=== PATIENT | female | born 1980 | race Two or more races ===

== ENCOUNTER 2017-02-20 13:31 | Emergency (ER) | payer OTHER ==
[2017-02-20 13:40] VITALS: BP 119/59; PULSE 73; TEMP 98.8; BMI 22.3
--- NOTE | 2017-02-20 14:03 | PDOC ---
History of Present Illness - General Chief Complaint: Vaginal Bleeding Stated Complaint: VAGINAL BLEEDING () Time Seen by Provider: 02/20/17 14:03 - History of Present Illness Initial Comments: 02/20/17 14:10 Ms. Tay is a 36 yo female with pmh of chronic rhinosinusitis who presents to the emergency room complaining of a 1 day history of vaginal bleeding. She reports that she is worried because she had taken a test last night after being 3 days late which was positive (desired ) but that she started her normal menstraul bleeding this morning. She reports a history of miscarriage after approximately 6 weeks around 10 years ago. She also reports a fever of 100.5 The patient denies chest pain, shortness of breath, headache and dizziness. Denies fever, chills, nausea, vomit, diarrhea and constipation. Denies dysuria, frequency, urgency and hematuria. Allergies: NKDA 02/20/17 16:20 Past History - Past Medical History Allergies/Adverse Reactions: Allergies Allergy/AdvReac Type Severity Reaction Status Date / Time No Known Allergies Allergy Verified 02/20/17 13:40 COPD: No Other medical history: denies - Suicide/Smoking/Psychosocial Hx Smoking History: Never smoked Information on smoking cessation initiated: No Hx Alcohol Use: No Drug/Substance Use Hx: No Substance Use Type: None Review of Systems - Review of Systems Comments:: 02/20/17 16:20 GENERAL/CONSTITUTIONAL: No fever or chills. No weakness. HEAD, EYES, EARS, NOSE AND THROAT: No change in vision. No ear pain or discharge. No sore throat. CARDIOVASCULAR: No chest pain or shortness of breath RESPIRATORY: No cough, wheezing, or hemoptysis. GASTROINTESTINAL: No nausea, vomiting, diarrhea or constipation. GENITOURINARY: +Bleeding consistent with normal period reported MUSCULOSKELETAL: No joint or muscle swelling or pain. No neck or back pain. SKIN: No rash NEUROLOGIC: No headache, vertigo, loss of consciousness, or change in strength/ sensation. ENDOCRINE: No increased thirst. No abnormal weight change HEMATOLOGIC/LYMPHATIC: No anemia, easy bleeding, or history of blood clots. ALLERGIC/IMMUNOLOGIC: No hives or skin allergy. *Physical Exam - Vital Signs Last Vital Signs Temp Pulse Resp BP Pulse Ox 98.8 F 73 18 119/59 99 02/20/17 13:37 02/20/17 13:37 02/20/17 13:37 02/20/17 13:37 02/20/17 13:37 - Physical Exam Comments: 02/20/17 16:21 GENERAL: Awake, alert, and fully oriented, in no acute distress HEAD: No signs of trauma, normocephalic, atraumatic EYES: PERRLA, EOMI, sclera anicteric, conjunctiva clear ENT: Auricles normal inspection, hearing grossly normal, nares patent, oropharynx clear without exudates. Moist mucosa NECK: Normal ROM, supple, no lymphadenopathy, JVD, or masses LUNGS: No distress, speaks full sentences, clear to auscultation bilaterally HEART: Regular rate and rhythm, normal S1 and S2, no murmurs, rubs or gallops, peripheral pulses normal and equal bilaterally. ABDOMEN: Soft, nontender, normoactive bowel sounds. No guarding, no rebound. No masses EXTREMITIES: Normal inspection, Normal range of motion, no edema. No clubbing or cyanosis. NEUROLOGICAL: Cranial nerves II through XII grossly intact. Normal speech, normal gait, no focal sensorimotor deficits SKIN: Warm, Dry, normal turgor, no rashes or lesions noted. : Scant blood noted in vaginal vault. OS closed, No CMT or pelvic tenderness. Medical Decision Making - Medical Decision Making 02/20/17 16:21 Ms. Tay had a negative urine HCG here but positive U-preg tests from home (4). Quantitative blood sent, confirmed early . Transvaginal US offered - patient declined. Discussed with patient need to return in 2 days to track Quantitative increase in HCG. Patient verbalized understanding and will comply. Patient will also follow-up outpatient with PCP and [facility]. *DC/Admit/Observation/Transfer Diagnosis at time of Disposition: Bleeding in early - Discharge Dispostion Disposition: HOME - Referrals - Patient Instructions Printed Discharge Instructions: DI for Vaginal Bleeding During Additional Instructions: Please return if any heavy bleeding, pain, fever, or other concerning symptoms. - Post Discharge Activity
--- NOTE | 2017-02-20 14:08 | PDOC ---
Attending Attestation - Resident Resident Name: Mendoza Garcia - HPI HPI: 02/21/17 18:32 Pt presents to the ED complaining of vaginal bleeding. period was 5 days late, so patient had positive pregancy tests at home. Denies abdominal pain or other complaints. - Physicial Exam PE: 02/21/17 18:33 Agree with resident exam. Abdomen is non tender on my exam. - Medical Decision Making 02/21/17 18:33 Pt presents to thE ED complaining of vaginal bleeding. Patient is but with bhcg of only 125. No abdominal pain or tenderness. Patient was offered US , which she refused. Patient understands that there is a small risk that she may have ectopic and that she must return immediately to the ED for new or worsening symptoms.
== END 2017-02-20 16:30 | disposition home or self-care (01) ==
LOC: JER 13:31
DX: O26.891 Other specified pregnancy related conditions, first trimester (principal); J06.9 Acute upper respiratory infection, unspecified; Z3A.01 Less than 8 weeks gestation of pregnancy
CPT/HCPCS: 36415; 84702; 84703; 86850; 86900; 86901; 99282-25

== ENCOUNTER 2017-02-22 15:12 | Emergency (ER) | payer OTHER ==
[2017-02-22 15:17] VITALS: BP 128/73; PULSE 95; TEMP 100.4; BMI 22.3
--- NOTE | 2017-02-22 15:35 | PDOC ---
History of Present Illness - General Chief Complaint: [facility] [place] Stated Complaint: REVISIT/ LAB VARIANCE Time Seen by Provider: 02/22/17 15:24 History Source: Patient Exam Limitations: No Limitations - History of Present Illness Initial Comments: 02/22/17 15:53 Chief complaint: Repeat hCG Patient 36-year-old female who was here 2 days ago for having a positive test and then having vaginal bleeding. No pain. Patient had a blood test that showed that she was with a Quant of 125. Patient did not have an ultrasound. Patient returns for repeat Quant, no pain and no bleeding. Patient had a fever of 100.5 on the previous visit and 100.4 today but feels well and has upper respiratory symptoms. She does states she has urinary frequency but no pain. GENERAL/CONSTITUTIONAL: No fever, weakness. dizziness HEAD, EYES, EARS, NOSE AND THROAT: No change in vision. No ear pain or discharge. No sore throat. CARDIOVASCULAR: No chest pain RESPIRATORY: No shortness of breath or cough GASTROINTESTINAL: No pain, nausea, vomiting, diarrhea or constipation GENITOURINARY: No dysuria, + frequency MUSCULOSKELETAL: No neck or back pain SKIN: No rash NEUROLOGIC: No headache, vertigo, loss of consciousness, or loss of sensation. GENERAL: The patient is awake, alert, and fully oriented, in no acute distress. HEAD: Normal with no signs of trauma. EYES: Pupils equal, round and reactive to light, sclera anicteric, conjunctiva clear. ENT: pharynx: no erythema, no exudate, uvula midline NECK: supple CHEST: clear, nontender, rr ABD: soft, nontender EXTREMITIES: Normal range of motion, no edema. NEUROLOGICAL: Normal speech, normal gait. SKIN: Warm, Dry Past History - Past Medical History Allergies/Adverse Reactions: Allergies Allergy/AdvReac Type Severity Reaction Status Date / Time No Known Allergies Allergy Verified 02/22/17 15:17 Home Medications: Ambulatory Orders NK [No Known Home Medication] 02/22/17 COPD: No - Suicide/Smoking/Psychosocial Hx Smoking History: Never smoked Hx Alcohol Use: Yes (SOCIAL) Drug/Substance Use Hx: No Substance Use Type: None *Physical Exam - Vital Signs Last Vital Signs Temp Pulse Resp BP Pulse Ox 100.4 F H 95 H 20 128/73 100 02/22/17 15:14 02/22/17 15:14 02/22/17 15:14 02/22/17 15:14 02/22/17 15:14 Medical Decision Making - Medical Decision Making Early , did have bleeding and was seen in the ER 2 days ago with a Quant of 125. Patient has low-grade fever, upper respiratory symptoms. No indication for further workup. We'll do a UA given the patient is and she has no pain and still does not want an ultrasound given the early stated the . No bleeding and patient was A+ on previous visit Quant today is 365. UA is negative. Patient will follow-up with OB on Friday and let them know that this is not for a routine 8 week visit. She will start vitamins and if she still has a fever she will follow-up with her doctor on Friday regarding that. She will return if she has any kind of abdominal pain or bleeding. *DC/Admit/Observation/Transfer Diagnosis at time of Disposition: early - Discharge Dispostion Disposition: HOME Condition at time of disposition: Stable - Referrals Referrals: Alyson Lee MD [Staff Physician] - - Patient Instructions Printed Discharge Instructions: DI for -- Discomforts and Remedies Additional Instructions: you can take tylenol for your fever. follow up on Friday if still having fever take vitamins daily make an appt with an ob for this week return to er if pain or bleeding - Post Discharge Activity
[2017-02-22 16:11] LABS: PH,URINE 8.5 (5.0-8.0); URINE APPEARANCE CLEAR; URINE BILIRUBIN NEGATIVE (NEGATIVE); URINE BLOOD NEGATIVE (NEGATIVE); URINE COLOR LT. YELLOW; URINE GLUCOSE (UA) NEGATIVE (NEGATIVE); URINE KETONE NEGATIVE (NEGATIVE); URINE NITRITE NEGATIVE (NEGATIVE); URINE PROTEIN NEGATIVE (NEGATIVE); URINE UROBILINOGEN 0.2 mg/dL (0.2-1.0)
[2017-02-22 19:28] LABS: URINE LEUK ESTERASE Negative (NEGATIVE)
== END 2017-02-22 17:09 | disposition home or self-care (01) ==
LOC: JERFT 15:12
DX: O26.891 Other specified pregnancy related conditions, first trimester (principal); Z3A.01 Less than 8 weeks gestation of pregnancy
CPT/HCPCS: 36415; 81003; 84702; 99281-25

== ENCOUNTER 2017-11-11 05:50 | Inpatient (IN) | payer OTHER ==
[~2017-11-11 05:50] MED LIST: CITRIC ACID/SODIUM CITRATE 30 ML UNIT-DOSE CUP PO ONE; ELECTROLYTE-148 SOLN 500 ML IV ONE
[2017-11-11] MEDS ORDERED: ELECTROLYTE-148 SOLN 1,000 ML IV SCH (06:20)
[2017-11-11 06:44] VITALS: BMI 27.4
[2017-11-11 06:49] LABS: BASO % 0.9 % (0-2.0); EOS % 0.7 % (0-4.5); HEMATOCRIT 32.5 % (32.4-45.2); HEMOGLOBIN 11.1 GM/dL (10.7-15.3); LYMPH % 29.2 % (8-40); MCH 33.7 pg (25.7-33.7); MCHC 34.2 g/dl (32.0-36.0); MEAN CELL VOLUME 98.4 fl (80-96); MONO % 7.8 % (3.8-10.2); NEUT % 61.4 % (42.8-82.8); PLATELET COUNT 136 K/MM3 (134-434); RDW 13.8 % (11.6-15.6)
[2017-11-11 07:09] LABS: INR 0.98 (0.83-1.09); PROTHROMBIN TIME (PATIENT) 11.1 SEC (9.7-13.0)
[2017-11-11 07:11] LABS: ACTIVATED PTT 25.7 SECONDS (25.2-36.5)
[2017-11-11] MEDS ORDERED: ONDANSETRON 4 MG/2 ML VIAL IVPUSH PRN (07:33)
[2017-11-11 07:35] LABS: ANION GAP 7 (8-16); BLOOD UREA NITROGEN 10 mg/dL (7-18); CALCIUM 8.9 mg/dL (8.5-10.1); CHLORIDE 106 mmol/L (98-107); CO2 25 mmol/L (21-32); CREATININE 0.7 mg/dL (0.55-1.02); GLUCOSE,RANDOM 85 mg/dL (74-106); POTASSIUM 4.5 mmol/L (3.5-5.1); SODIUM 138 mmol/L (136-145)
[2017-11-11] MEDS ORDERED: morphine SULFATE/Preservative Free 0.5 MG/ML (1cc Syringe) ONE ×2 (08:23→09:38)
[2017-11-11] MEDS ORDERED: OXYTOCIN 20 UNITS in 0.9% NS 40 UNIT/2,000 ML INFUS.BAG IV ONE (09:02)
--- NOTE | 2017-11-11 09:30 | HP ---
Past Medical History - Primary Care Physician PCP:: Nelly Cruz - Admission Chief Complaint: 36yo P0 @ 41 weeks, s/p failed Postdates induction, declining another BETSY, for elective c/section, + FM, denies VB, LOF, Ctx. History of Present Illness: 1. GBS positive - for c/section, no need for prophylaxis 2. AMA - Nl Materni 21 XY History Source: Patient, Medical Record Limitations to Obtaining History: No Limitations - Past Medical History ...: 2 ...Para: 0 ...Term: 0 ...: 0 ...Spon : 1 ...Induced : 0 ...Multiple Gestation: 0 ...LMP: 01/24/17 ... Weeks Gestation by Dates: 41.4 ...EDC by Dates: 10/31/17 ...EDC by Sono: 11/04/17 Infectious Disease: Yes: Other (Chronic sinusitis) - Past Surgical History Past Surgical History: Yes: None Hx Myomectomy: No Hx Transabdominal Cerclage: No Additional Surgical History: Rhinoplasty - Smoking History Smoking history: Never smoked Have you smoked in the past 12 months: No - Alcohol/Substance Use Hx Alcohol Use: No History of Substance Use: reports: None - Social History ADL: Independent History of Recent Travel: No Home Medications - Allergies Allergies/Adverse Reactions: Allergies Allergy/AdvReac Type Severity Reaction Status Date / Time No Known Allergies Allergy Verified 11/05/17 19:50 - Home Medications Home Medications: Ambulatory Orders Vitamins (Sjr) - 1 tab PO DAILY 11/05/17 Ibuprofen [Motrin -] 600 mg PO QID #28 tablet 11/14/17 Physical Exam - Maternity Vital Signs: Vital Signs Temperature 98.4 F 11/11/17 07:33 Pulse Rate 86 11/11/17 08:33 Respiratory Rate 20 11/11/17 08:33 Blood Pressure 125/70 11/11/17 08:33 O2 Sat by Pulse Oximetry (%) - Labs Lab Results: CBC, BMP 11/11/17 06:05 11/11/17 06:05
[2017-11-11] MEDS ORDERED: ePHEDrine SULFATE 50 MG/1 ML AMPULE ONE (09:45)
[2017-11-11] MEDS ORDERED: SODIUM CHLORIDE 0.9% P/F 10 ML VIAL IJ ONE (09:46)
[2017-11-11] MEDS ORDERED: ceFAZolin SODIUM 1 GM VIAL ONE ×3 (09:46→23:56)
[2017-11-11] MEDS ORDERED: KETOROLAC TROMETHAMINE 30 MG/1 ML VIAL ONE (09:47)
[2017-11-11] MEDS ORDERED: BENZOCAINE 20% 57 GM BOTTLE TP PRN (11:19)
[2017-11-11] MEDS ORDERED: diphenhydrAMINE HCL 25 MG CAPSULE (FP) PO PRN (11:19)
[2017-11-11] MEDS ORDERED: WITCH HAZEL 50% (TUCKS) 40 PAD/JAR PAD TP PRN (11:19)
[2017-11-11] MEDS ORDERED: METHYLERGONOVINE MALEATE 0.2 MG/1 ML AMP IM PRN (11:19)
[2017-11-11] MEDS ORDERED: oxyCODONE HCL 5 MG TABLET PO PRN ×2 (11:19)
[2017-11-11] MEDS ORDERED: BENZOCAINE 28 GM HEMORRHOIDAL OINTMENT PR PRN (11:19)
--- NOTE | 2017-11-11 11:28 | OP ---
Operative Note - Note: Operative Date: 11/11/17 Pre-Operative Diagnosis: 36yo P0 @ 41 wks failed induction of labor, elective c/ section Operation: Primary c/section Post-Operative Diagnosis: Same as Pre-op (and meconium stained amniotic fluid) Surgeon: Nelly Cruz Name Plate Stamping Machine Operator: Oleg Guerrero Anesthesiologist/EQUIPMENT ASSOCIATE: Trung Anguiano Anesthesia: Spinal Specimens Removed: Viable Male infant. Full term placenta Estimated Blood Loss (mls): 500 Drains, Volume Out (mls): 200 Fluid Volume Replaced (mls): 2,300 Operative Report Dictated: Yes
[2017-11-11] MEDS ORDERED: OXYTOCIN 20 UNITS in 0.9% NS 1,000 ML IV SCH (11:30)
--- NOTE | 2017-11-11 11:33 | PN ---
Delivery - Delivery Section: Primary, Low Flap Transverse Type of Anesthesia: Spinal EBL (cc): 500 Delivery, Single - Stages of Labor Date of Delivery: 11/11/17 Time of Delivery: 10:07 Date Placenta Delivered: 11/11/17 Time Placenta Delivered: 10:09 Placenta: Yes: Expressed - Condition of Infant Adjunct Psychology Faculty Member/Professor Of Mechanical Engineering Present: Yes Infant Gender: Male Weight: 8 lb 3 oz Position: Right, OT - 1 Minute Total Score: 8 5 Minutes Total Score: 9 - Feeding Plan Initial Plan: Elected not to breastfeed exclusively throughout hospitalization Benefits of Exclusively reinforced: Yes Remarks - Remarks Remarks: Meconium stained fluid noted All tissue layers closed
[2017-11-11 11:44] LABS: ARTERIAL BLD GAS O2 SATURATION 43.7 % (90-98.9); ARTERIAL BLOOD GAS BASE EXCESS -7.1 meq/l (-2-2); ARTERIAL BLOOD GAS PCO2 50.1 mmHg (35-45); ARTERIAL BLOOD GAS pH 7.24 (7.35-7.45)
[2017-11-11 11:49] LABS: ARTERIAL BLOOD GAS PO2 25.5 mmHg (80-100)
[2017-11-11 11:50] LABS: VENOUS PH 7.2 (7.32-7.42)
[2017-11-11 11:51] LABS: VENOUS PO2 27.2 mmHg (28-48)
[2017-11-11] MEDS: OXYTOCIN 20 UNITS in 0.9% NS 20 UNIT/1,000 ML INFUS.BAG IV SCH (13:19)
[2017-11-11] MEDS ORDERED: TRIAMCINOLONE ACET 40MG/1ML VIAL SQ ONE (14:30)
[2017-11-11] MEDS: IBUPROFEN 800 MG/8 ML IJ IVPB PRN ×2 (14:31→20:06)
[2017-11-11] MEDS ORDERED: DEXTROSE 5%-WATER - 50 ML IVPB ONE ×2 (17:43→23:56)
[2017-11-11] MEDS: CEFAZOLIN 1 GM in DEXTROSE 5%-WATER - 50 ML IVPB SCH (17:52)
[2017-11-12] MEDS: CEFAZOLIN 1 GM in DEXTROSE 5%-WATER - 50 ML IVPB SCH ×2 (02:03→10:29)
[2017-11-12] MEDS: IBUPROFEN 800 MG/8 ML IJ IVPB PRN (05:18)
--- NOTE | 2017-11-12 07:06 | OP ---
DATE OF OPERATION: 11/11/2017 PREOPERATIVE DIAGNOSIS: A 36-year-old para 0 at 41 weeks status post failed trial of labor, elective . PROCEDURE: Primary low-segment transverse section. POSTOPERATIVE DIAGNOSIS: A 36-year-old para 0 at 41 weeks status post failed trial of labor, elective , meconium stained fluid, male infant, Apgars 8 and 9, weight 8 pounds 3 ounces. SURGEON: Nelly Cruz MD FOUR SLIDE OPERATOR: Oleg Guerrero MD DESCRIPTION OF THE OPERATIVE PROCEDURE: After assuring informed consent, patient was brought to the operating room where she was placed in dorsal supine position with left lateral tilt. Abdomen was prepped and draped in sterile fashion. A Pfannenstiel skin incision was created with the scalpel and carried down to the level of fascia with Bovie cautery. The fascia was incised with Bovie cautery and extended bilaterally with Bovie cautery, dissected with Bovie cautery superiorly and inferiorly off the rectus abdominis muscle. The rectus abdominis muscle was split in the midline and dissected bluntly to the level of symphysis pubis. The peritoneum was identified and stretched bilaterally. The lower edge of the [place] was used to retract the bladder. The vesicouterine peritoneum was identified, tented and dissected bilaterally. Bladder was retracted with the lower edge of the [place]. Uterine incision was made with the scalpel and dissected bilaterally with bandage scissors. Infants head was delivered atraumatically. The rest of the infants body was delivered atraumatically in OT presentation. was suctioned upon delivery. Cord clamped and cut. Fluid was noted to be stained with meconium. Infant was handed to awaiting boring machine operator helper, proposal analyst. Cord was sent for blood gases. Placenta was expressed and uterus was cleared of clots and debris. Uterus was repaired in situ with running locking suture of 0 Biosyn and subsequent second layer of imbrication was created with 0 Biosyn. Excellent hemostasis was achieved. Abdomen was irrigated and irrigation fluid was suctioned. Normal tubes and ovaries were noted bilaterally. Peritoneum was closed with 0 Biosyn in running fashion. The muscle was reapproximated at the midline with 0 Biosyn, fascia was closed with 0 Vicryl in running fashion, subcutaneous tissue was reapproximated and subcuticular suturing was performed with 4-0 Biosyn. Patient also received 10 mL of Kenalog solution into the surgical incision postoperatively. Uterus was expressed of clots and debris. All sponge and instrument counts were correct x2. ESTIMATED BLOOD LOSS: 500 mL. URINE OUTPUT: 200 mL. FLUIDS: Patient received 2300 mL of IV fluids. DISPOSITION: Patient was brought to the recovery room in stable condition. Manuel [id number]
[2017-11-12 09:09] LABS: BASO % 0.4 % (0-2.0); HEMATOCRIT 22.6 % (32.4-45.2); HEMOGLOBIN 7.7 GM/dL (10.7-15.3); LYMPH % 13.8 % (8-40); MCH 33.9 pg (25.7-33.7); MCHC 34.1 g/dl (32.0-36.0); MEAN CELL VOLUME 99.3 fl (80-96); MEAN PLT VOLUME 9.2 fl (7.5-11.1); MONO % 5.1 % (3.8-10.2); NEUT % 80.7 % (42.8-82.8); PLATELET COUNT 127 K/MM3 (134-434); RBC 2.27 M/mm3 (3.60-5.2); RDW 13.7 % (11.6-15.6); WHITE BLOOD COUNT 8.3 K/mm3 (4.0-10.0)
--- NOTE | 2017-11-12 09:26 | PN ---
Progress Note (short form) - Note Progress Note: pod 1 s/p primary c/s, doing well, comfortable, no excess vaginal bleeding, no dizziness CBC, BMP 11/12/17 08:00 11/11/17 06:05 Last Vital Signs Temp Pulse Resp BP Pulse Ox 98.7 F 100 H 18 118/72 11/12/17 06:00 11/12/17 06:00 11/12/17 06:00 11/12/17 06:00 abdomen soft, no distension, no cva incision dry, covered uterus firm lochia mild no calf tenderness impresion anemia , asymptomatic , will observe , if dizziness after ambulation may need transfusion, repeat cbc ambulate, iron. vit
[2017-11-12] MEDS ORDERED: DEXTROSE 5%-WATER - 50 ML IVPB ONE (10:25)
[2017-11-12] MEDS ORDERED: ceFAZolin SODIUM 1 GM VIAL ONE (10:25)
[2017-11-12] MEDS: SIMETHICONE 80 MG TAB.CHEW (FP) PO PRN ×2 (10:30→19:56)
[2017-11-12] MEDS ORDERED: ACETAMINOPHEN 325 MG TABLET (FP) ONE (11:08)
[2017-11-12] MEDS: IBUPROFEN 600 MG TABLET (FP) PO PRN ×2 (11:13→19:56)
[2017-11-12] MEDS ORDERED: BISACODYL 10 MG SUPP.RECT PR PRN (11:19)
[2017-11-12] MEDS: ACETAMINOPHEN 325 MG TABLET (FP) PO PRN ×2 (13:11→19:56)
[2017-11-12] MEDS: DEXTROSE 5%-LACTATED RINGERS 1,000 ML IV SCH (13:25)
[2017-11-12] MEDS: SENNOSIDES/DOCUSATE COMBO (SENNA PLUS) TABLET (UD) PO PRN (19:56)
[2017-11-13] MEDS: DEXTROSE 5%-LACTATED RINGERS 1,000 ML IV SCH (00:02)
[2017-11-13] MEDS: OXYTOCIN 20 UNITS in 0.9% NS 20 UNIT/1,000 ML INFUS.BAG IV SCH (00:02)
[2017-11-13] MEDS: SIMETHICONE 80 MG TAB.CHEW (FP) PO PRN ×3 (00:15→16:05)
[2017-11-13] MEDS: ACETAMINOPHEN 325 MG TABLET (FP) PO PRN ×4 (00:15→21:33)
[2017-11-13] MEDS: IBUPROFEN 600 MG TABLET (FP) PO PRN ×3 (00:16→21:34)
--- NOTE | 2017-11-13 07:58 | PN ---
Post Progress Note - Subjective Subjective: Patient without acute complaints. Reports tolerating oral intake without nausea or vomiting. Ambulating without dizziness. Denies fevers or chills. Pain well controlled with oral pain medication. without difficulty. Passing flatus no BM yet. Post Day: 2 Type of Delivery: Primary C/S Vital Signs: Vital Signs Temperature 99.0 F 11/12/17 22:00 Pulse Rate 105 H 11/12/17 22:00 Respiratory Rate 18 11/12/17 22:00 Blood Pressure 108/52 11/12/17 22:00 O2 Sat by Pulse Oximetry (%) Breast Exam: Yes: Engorged Uterus: Yes: Fundus Firm, Fundus below umbilicus Incision: Yes: Sutures intact. No: Redness, Oozing Abdomen/GI: Yes: Abdomen soft, Abdominal Distention (mild soft), Tender (mild incisional), Passing flatus, Tolerating PO Lochia: Yes: Serosa Lochia, amount: Small Extremities: Yes: Calves non-tender. No: Edema Activity: Ambulating - Labs Labs: CBC WBC 8.3 K/mm3 (4.0-10.0) 11/12/17 08:00 RBC 2.27 M/mm3 (3.60-5.2) L 11/12/17 08:00 Hgb 7.7 GM/dL (10.7-15.3) L 11/12/17 08:00 Hct 22.6 % (32.4-45.2) L D 11/12/17 08:00 MCV 99.3 fl (80-96) H 11/12/17 08:00 MCH 33.9 pg (25.7-33.7) H 11/12/17 08:00 MCHC 34.1 g/dl (32.0-36.0) 11/12/17 08:00 RDW 13.7 % (11.6-15.6) 11/12/17 08:00 Plt Count 127 K/MM3 (134-434) L 11/12/17 08:00 MPV 9.2 fl (7.5-11.1) 11/12/17 08:00 Absolute Neuts (auto) 6.7 K/mm3 (1.5-8.0) 11/12/17 08:00 Neutrophils % 80.7 % (42.8-82.8) D 11/12/17 08:00 Lymphocytes % 13.8 % (8-40) D 11/12/17 08:00 Monocytes % 5.1 % (3.8-10.2) 11/12/17 08:00 Eosinophils % 0.0 % (0-4.5) D 11/12/17 08:00 Basophils % 0.4 % (0-2.0) 11/12/17 08:00 Nucleated RBC % 0 % (0-0) 11/12/17 08:00 Assessment/Plan 36 yo POD #2 s/p 1 CD, afebrile, vital signs stable, asymptomatic anemia, doing well 1. Continue routine postoperative care. 2. Encourage ambulation and incentive spirometer use 3. Continue oral pain medication 4. will repeat CBC 5. Anticipate discharge home postoperative day #3 or #4
[2017-11-13 10:27] LABS: HEMATOCRIT 22.5 % (32.4-45.2); HEMOGLOBIN 7.7 GM/dL (10.7-15.3); MCH 34.4 pg (25.7-33.7); MCHC 33.9 g/dl (32.0-36.0); MEAN CELL VOLUME 101.4 fl (80-96); MEAN PLT VOLUME 9.9 fl (7.5-11.1); PLATELET COUNT 161 K/MM3 (134-434); RBC 2.22 M/mm3 (3.60-5.2); RDW 14.3 % (11.6-15.6); WHITE BLOOD COUNT 11.5 K/mm3 (4.0-10.0)
--- NOTE | 2017-11-13 12:09 | PN ---
Progress Note (short form) - Note Progress Note: Anesthesia Note Called to see patient as she was reporting new-onset headache. In brief, pt is s /p C/S under spinal anesthesia. Pt seen reclining in bed in NAD. Reports headache started around the time she received oral pain medication. Reports that it is worse when she sits up or walks, and tolerable when she is laying. Denies and nausea/vomiting and is able to tolerate PO. Pt not sensitive to light or sound and denies any change in strength or sensation throughout. Vital Signs Temperature 79 F L 11/13/17 08:47 Pulse Rate 99 H 11/13/17 08:47 Respiratory Rate 20 11/13/17 08:47 Blood Pressure 123/89 11/13/17 08:47 O2 Sat by Pulse Oximetry (%) CBC, BMP 11/13/17 09:45 11/11/17 06:05 Recommend hydration, either PO or IV. Recommend discussing with primary team re post-op anemia. If IV placed, can give Ofirmev 1000mg.
[2017-11-13] MEDS ORDERED: LACTATED RINGERS SOLUTION 1,000 ML/1,000 ML INFUS.BAG IV SCH (12:30)
[2017-11-13] MEDS ORDERED: ACETAMINOPHEN 1000 MG/100 ML VIAL (NON FORMULARY) IVPB ONE (13:15)
[2017-11-13] MEDS: SENNOSIDES/DOCUSATE COMBO (SENNA PLUS) TABLET (UD) PO PRN (21:33)
[2017-11-14] MEDS: IBUPROFEN 600 MG TABLET (FP) PO PRN ×4 (01:33→20:41)
[2017-11-14] MEDS: ACETAMINOPHEN 325 MG TABLET (FP) PO PRN ×3 (01:33→13:23)
[2017-11-14] MEDS: SIMETHICONE 80 MG TAB.CHEW (FP) PO PRN ×4 (01:33→20:41)
--- NOTE | 2017-11-14 07:03 | DS ---
Physical Exam-SENIOR OFFICER Vital Signs: Vital Signs Temperature 99.2 F 11/13/17 21:48 Pulse Rate 91 H 11/13/17 21:48 Respiratory Rate 18 11/13/17 21:48 Blood Pressure 121/62 11/13/17 21:48 O2 Sat by Pulse Oximetry (%) Constitutional: Yes: Well Nourished, No Distress, Calm Eyes: Yes: WNL, Conjunctiva Clear, EOM Intact HENT: Yes: WNL, Atraumatic, Normocephalic Neck: Yes: WNL, Supple, Trachea Midline Cardiovascular: Yes: WNL, Regular Rate and Rhythm Respiratory: Yes: WNL, Regular, CTA Bilaterally Gastrointestinal: Yes: WNL ...Rectal Exam: Yes: WNL Renal/: Yes: WNL ....Post : Yes: Uterus firm, Uterus non-tender, Slight lochia rubra Breast(s): Yes: WNL Musculoskeletal: Yes: WNL Extremities: Yes: WNL Edema: Yes Edema: LLE: Trace, RLE: Trace Integumentary: Yes: WNL Wound/Incision: Yes: Clean/Dry, Well Approximated, Sutures Intact Neurological: Yes: WNL, Alert, Oriented ...Motor Strength: WNL Psychiatric: Yes: WNL, Alert, Oriented Labs: CBC, BMP 11/13/17 09:45 11/11/17 06:05 Delivery - Delivery Section: Primary, Low Flap Transverse Type of Anesthesia: Spinal Episiotomy/Laceration: None EBL (cc): 500 Delivery, Single - Stages of Labor Date of Delivery: 11/11/17 Time of Delivery: 10:07 Time Placenta Delivered: 10:09 Placenta: Yes: Expressed - Condition of Infant Manager Rfid/Production Line Assembler Present: Yes Name: Su Jiménez Infant Gender: Male Weight: 8 lb 3 oz Position: Right, OT Total Hours ROM (Hrs/Mins): 1 min - 1 Minute Total Score: 8 5 Minutes Total Score: 9 - [facility] Feeding Plan Initial Plan: Elected not to breastfeed exclusively throughout hospitalization Benefits of Exclusively reinforced: Yes Discharge Summary Reason For Visit: ADMIT C/S Procedures: Principal: primary LST c/s Hospital Course: anemia Condition: Good - Instructions Diet, Activity, Other Instructions: regular diet, follow up office 1 week, if dizziness , headache, heavy vaginal bleeding ,call cont iron, vit Referrals: Nelly Cruz MD [Staff Physician] - Disposition: HOME - Home Medications Comprehensive Discharge Medication List: Ambulatory Orders Vitamins (Sjr) - 1 tab PO DAILY 11/05/17 Ibuprofen [Motrin -] 600 mg PO QID #28 tablet 11/14/17
[2017-11-14 08:02] LABS: BASO % 0.3 % (0-2.0); EOS % 0.2 % (0-4.5); LYMPH % 18.9 % (8-40); MCH 34.5 pg (25.7-33.7); MCHC 34.4 g/dl (32.0-36.0); MEAN CELL VOLUME 100.5 fl (80-96); MEAN PLT VOLUME 9.3 fl (7.5-11.1); MONO % 6.1 % (3.8-10.2); NEUT % 74.5 % (42.8-82.8); PLATELET COUNT 144 K/MM3 (134-434); RBC 1.99 M/mm3 (3.60-5.2); RDW 14.3 % (11.6-15.6); WHITE BLOOD COUNT 11.5 K/mm3 (4.0-10.0)
[2017-11-14 08:27] LABS: HEMOGLOBIN 6.9 GM/dL (10.7-15.3)
--- NOTE | 2017-11-14 08:31 | PN ---
Progress Note (short form) - Note Progress Note: feels better, no dizziness , has low abdominal cramps, wants to go home CBC, BMP 11/14/17 07:34 11/11/17 06:05 Last Vital Signs Temp Pulse Resp BP Pulse Ox 99.2 F 91 H 18 121/62 11/13/17 21:48 11/13/17 21:48 11/13/17 21:48 11/13/17 21:48 abdomen soft, no distension, no cva incision dry, clean no calf tenderness no excess vaginal bleeding impression slight decrease in H&H , blood transfusion discussed advsied stay another day for observation
[2017-11-14] MEDS ORDERED: ACETAMINOPHEN 325 MG TABLET (FP) PO ONE ×2 (16:00→20:56)
[2017-11-14] MEDS ORDERED: diphenhydrAMINE HCL 25 MG CAPSULE (FP) PO ONE ×2 (16:00→20:55)
[2017-11-14] MEDS: SENNOSIDES/DOCUSATE COMBO (SENNA PLUS) TABLET (UD) PO PRN (20:40)
[2017-11-15] MEDS: IBUPROFEN 600 MG TABLET (FP) PO PRN ×2 (08:54→13:36)
[2017-11-15] MEDS: ACETAMINOPHEN 325 MG TABLET (FP) PO PRN ×2 (08:54→13:37)
[2017-11-15] MEDS: SIMETHICONE 80 MG TAB.CHEW (FP) PO PRN ×2 (08:54→13:38)
[2017-11-15 09:55] VITALS: BP 121/64; PULSE 76; TEMP 99.3
[2017-11-15 10:31] LABS: HEMATOCRIT 29.7 % (32.4-45.2); HEMOGLOBIN 10.1 GM/dL (10.7-15.3); MCH 32.9 pg (25.7-33.7); MCHC 34.1 g/dl (32.0-36.0); MEAN CELL VOLUME 96.7 fl (80-96); MEAN PLT VOLUME 9.1 fl (7.5-11.1); PLATELET COUNT 181 K/MM3 (134-434); RBC 3.07 M/mm3 (3.60-5.2); RDW 17.1 % (11.6-15.6); WHITE BLOOD COUNT 13.5 K/mm3 (4.0-10.0)
--- NOTE | 2017-11-15 10:34 | PN ---
Post Progress Note - Subjective Subjective: No complains Post Day: 4 Type of Delivery: Primary C/S Vital Signs: Vital Signs Temperature 99.3 F 11/15/17 09:00 Pulse Rate 76 11/15/17 09:00 Respiratory Rate 20 11/15/17 09:00 Blood Pressure 121/64 11/15/17 09:00 O2 Sat by Pulse Oximetry (%) Breast Exam: Yes: Soft Uterus: Yes: Fundus Firm Incision: Yes: Dressing dry and intact Abdomen/GI: Yes: Abdomen soft Lochia: Yes: Rubra Lochia, amount: Small Extremities: Yes: Calves non-tender Perineum: Yes: Intact Activity: Ambulating - Labs Labs: CBC WBC 11.5 K/mm3 (4.0-10.0) H 11/14/17 07:34 RBC 1.99 M/mm3 (3.60-5.2) L 11/14/17 07:34 Hgb 6.9 GM/dL (10.7-15.3) L* 11/14/17 07:34 Hct 20.0 % (32.4-45.2) L 11/14/17 07:34 MCV 100.5 fl (80-96) H 11/14/17 07:34 MCH 34.5 pg (25.7-33.7) H 11/14/17 07:34 MCHC 34.4 g/dl (32.0-36.0) 11/14/17 07:34 RDW 14.3 % (11.6-15.6) 11/14/17 07:34 Plt Count 144 K/MM3 (134-434) 11/14/17 07:34 MPV 9.3 fl (7.5-11.1) 11/14/17 07:34 Absolute Neuts (auto) 8.6 K/mm3 (1.5-8.0) H 11/14/17 07:34 Neutrophils % 74.5 % (42.8-82.8) 11/14/17 07:34 Lymphocytes % 18.9 % (8-40) D 11/14/17 07:34 Monocytes % 6.1 % (3.8-10.2) 11/14/17 07:34 Eosinophils % 0.2 % (0-4.5) D 08/24/18 07:34 Basophils % 0.3 % (0-2.0) 11/14/17 07:34 Nucleated RBC % 0 % (0-0) 11/14/17 07:34 Assessment/Plan 36yo P1 now s/p Primary c/section for failed induction s/p 2U PRBC VSS, Afebrile excellent response to blood transfusion d/c home NPV x 6wks RTO 6 wks
--- NOTE | 2017-11-18 18:02 | PATH ---
Surgical Pathology Report Patient Name: MARJ FARLEY Med. Rec. #: [id number] /Age/Gender: 1980 (Age: 36) / F Account: [id number] Location: [facility] OBS/CLINIC LPN Taken: 11/11/2017 Received: 11/12/2017 Reported: 11/18/2017 Physicians: Nelly Cruz M.D. Specimen(s) Received PLACENTA Clinical History , 41 gestational weeks, elective Final Diagnosis PLACENTA: THIRD TRIMESTER PLACENTA. TRIVASCULAR CORD. MEMBRANES WITH NO DIAGNOSTIC ABNORMALITIES. Electronically Signed Kirsty Guevara M.D. Gross Description The specimen is received fresh labeled placenta and is a 480 gram, 19.0 x 16.0 x 2.2 cm. placenta with attached membranes and umbilical cord. The attached membranes are perez green, meconium stained, translucent with focal opacities and insert marginally. The umbilical cord measures 9 cm. in length and averages 1 cm. in diameter. The cord inserts eccentrically, 6.5 cm. to the nearest margin. No true knots or strictures are identified. Cut surface of the umbilical cord reveals 3 vessels. The surface is black green, meconium stained with minimal fibrin deposition and appropriate caliber vessels. The maternal surface is red-brown with focal defects. Sectioning reveals red-brown, spongy parenchyma. No lesions are identified. Business Analyst sections are submitted in three cassettes as follows: 1- membrane rolls and umbilical cord; 2-3- full thickness sections of placenta. 11/14/2017 [facility]2017
== END 2017-11-15 14:55 | disposition home or self-care (01) | DRG 766 ==
LOC: JLDR 05:50 → J3W 12:41
PROVIDERS: ADMIT Obstetrics & Gynecology; ATTEND Obstetrics & Gynecology
PROC: 10D00Z1 Extraction of Products of Conception, Low, Open Approach (ICD-10-PCS; principal; 2017-11-11)
DX: O48.0 Post-term pregnancy (principal); O61.0 Failed medical induction of labor; O99.824 Streptococcus B carrier state complicating childbirth; O77.0 Labor and delivery complicated by meconium in amniotic fluid; Z37.0 Single live birth; Z3A.40 40 weeks gestation of pregnancy
CPT/HCPCS: 36415; 36430; 36511; 36600; 71046-TC-FY; 80048; 82803; 85025; 85027; 85610; 85730; 86593; 86850; 86900; 86901; 86922; 88307-TC; P9038; P9058

== ENCOUNTER 2023-02-18 06:25 | Inpatient (IN) | payer BC ==
[2023-02-18 07:36] VITALS: BMI 24.5
[2023-02-18] MEDS ORDERED: morphine SULFATE/PF 1 MG/2 ML (2cc Syringe - QUVA) ONE (07:45)
[2023-02-18] MEDS ORDERED: FENTANYL CITRATE/PF 50 MCG/ML VIAL ONE (07:45)
[2023-02-18] MEDS ORDERED: TRIAMCINOLONE ACETONIDE 40 MG/ML 10 ML VIAL SQ ONE (07:50)
[2023-02-18] MEDS ORDERED: LIGASURE IMPACT TP ONE (07:58)
[2023-02-18] MEDS ORDERED: ELECTROLYTE-148 SOLN 1,000 ML IV SCH (08:00)
[2023-02-18] MEDS ORDERED: PHENYLEPHRINE HCL 10 MG/1 ML SINGLE DOSE VIAL ONE (08:12)
[2023-02-18] MEDS ORDERED: ONDANSETRON 4 MG/2 ML VIAL ONE (08:12)
[2023-02-18] MEDS ORDERED: ceFAZolin SODIUM 1 GM VIAL ONE (08:12)
[2023-02-18] MEDS ORDERED: OXYTOCIN 10 UNITS/ML VIAL ONE (08:12)
[2023-02-18] MEDS ORDERED: KETOROLAC TROMETHAMINE 30 MG/1 ML VIAL ONE (08:12)
[2023-02-18 09:33] LABS: CORD BASE EXCESS -0.7 mmol/L (0-2); CORD HCO3 26.1 mmHg (20-29); CORD PCO2 51.8 mmHg (30-78); CORD pH 7.321 (7.14-7.44)
[2023-02-18 09:36] LABS: CORD BASE EXCESS -2.3 mmol/L (0-2); CORD HCO3 23.4 mmHg (20-29); CORD PCO2 43.7 mmHg (30-78); CORD pH 7.347 (7.14-7.44)
[2023-02-18] MEDS ORDERED: ONDANSETRON 4 MG/2 ML VIAL IVPUSH PRN (10:00)
[2023-02-18] MEDS ORDERED: morphine SULFATE/PF 1 MG/2 ML (2cc Syringe - QUVA) IV ONE (10:00)
[2023-02-18] MEDS ORDERED: ACETAMINOPHEN 1000 MG/100 ML BAG IVPB ONE (10:01)
[2023-02-18] MEDS ORDERED: METHYLERGONOVINE MALEATE 0.2 MG/1 ML AMP IM PRN (11:07)
[2023-02-18] MEDS ORDERED: ACETAMINOPHEN 325 MG TABLET (FP) PO PRN (11:07)
[2023-02-18] MEDS ORDERED: OXYTOCIN 20 UNITS in 0.9% NS 20 UNIT/1,000 ML INFUS.BAG IV SCH (11:15)
[2023-02-18 12:16] LABS: BASO % 0.4 % (0-2.0); EOS % 0.8 % (0-4.5); HEMATOCRIT 43.6 % (32.4-45.2); HEMOGLOBIN 14.3 GM/dL (10.7-15.3); LYMPH % 10.7 % (8-40); MCH 32.8 pg (25.7-33.7); MCHC 32.8 g/dl (32.0-36.0); MEAN CELL VOLUME 99.9 fl (80-96); MEAN PLT VOLUME 10.4 fl (7.5-11.1); MONO % 3.8 % (3.8-10.2); NEUT % 84.3 % (42.8-82.8); PLATELET COUNT 136 10^3/uL (134-434); RBC 4.36 M/mm3 (3.60-5.2); RDW 14.2 % (11.6-15.6); WHITE BLOOD COUNT 8.9 K/mm3 (4.0-10.0)
[2023-02-18 12:34] LABS: POTASSIUM 4.7 mmol/L (3.5-5.1)
[2023-02-18 12:36] LABS: CALCIUM 8.5 mg/dL (8.5-10.1)
[2023-02-18 12:37] LABS: ALBUMIN 2.9 g/dl (3.4-5.0); BLOOD UREA NITROGEN 13.2 mg/dL (7-18)
[2023-02-18 12:40] LABS: CREATININE 0.6 mg/dL (0.55-1.3)
[2023-02-18 12:42] LABS: BILIRUBIN,TOTAL 0.9 mg/dL (0.2-1)
[2023-02-18] MEDS: CEFAZOLIN 1 GM in DEXTROSE 5%-WATER - 50 ML IVPB SCH (17:29)
[2023-02-18] MEDS: IBUPROFEN 800 MG/8 ML IJ IVPB PRN (23:05)
[2023-02-18] MEDS ORDERED: oxyCODONE HCL 5 MG TABLET PO PRN (23:07)
[2023-02-19] MEDS: CEFAZOLIN 1 GM in DEXTROSE 5%-WATER - 50 ML IVPB SCH ×2 (02:17→09:59)
[2023-02-19] MEDS: SIMETHICONE 80 MG TAB.CHEW (FP) PO PRN ×2 (02:35→13:15)
[2023-02-19 07:41] LABS: BASO % 0.4 % (0-2.0); EOS % 0.1 % (0-4.5); HEMATOCRIT 35.1 % (32.4-45.2); HEMOGLOBIN 11.5 GM/dL (10.7-15.3); MCH 32.8 pg (25.7-33.7); MCHC 32.8 g/dl (32.0-36.0); MEAN CELL VOLUME 100.3 fl (80-96); MEAN PLT VOLUME 10.1 fl (7.5-11.1); MONO % 5.2 % (3.8-10.2); NEUT % 82.3 % (42.8-82.8); PLATELET COUNT 140 10^3/uL (134-434); RDW 14.3 % (11.6-15.6); WHITE BLOOD COUNT 9.3 K/mm3 (4.0-10.0)
[2023-02-19] MEDS: IBUPROFEN 800 MG/8 ML IJ IVPB PRN (07:58)
[2023-02-19 08:38] VITALS: RESP 18
[2023-02-19] MEDS: ENOXAPARIN NA (PORCINE) 40 MG/0.4 ML DISP.SYRIN SQ SCH (10:00)
[2023-02-19] MEDS ORDERED: BISACODYL 10 MG SUPP.RECT RC PRN (11:07)
[2023-02-19] MEDS: IBUPROFEN 600 MG TABLET (FP) PO PRN ×2 (13:15→22:42)
[2023-02-20] MEDS: ENOXAPARIN NA (PORCINE) 40 MG/0.4 ML DISP.SYRIN SQ SCH (10:18)
[2023-02-20] MEDS: IBUPROFEN 600 MG TABLET (FP) PO PRN ×3 (10:27→23:45)
[2023-02-20] MEDS: SIMETHICONE 80 MG TAB.CHEW (FP) PO PRN ×3 (10:27→23:45)
[2023-02-21] MEDS: SIMETHICONE 80 MG TAB.CHEW (FP) PO PRN (07:52)
[2023-02-21] MEDS: IBUPROFEN 600 MG TABLET (FP) PO PRN (07:52)
[2023-02-21 09:12] LABS: BASO % 0.5 % (0-2.0); EOS % 0.1 % (0-4.5); HEMATOCRIT 36.4 % (32.4-45.2); LYMPH % 18.3 % (8-40); MCHC 32.9 g/dl (32.0-36.0); MEAN CELL VOLUME 100.4 fl (80-96); MEAN PLT VOLUME 9.9 fl (7.5-11.1); MONO % 5.6 % (3.8-10.2); NEUT % 75.5 % (42.8-82.8); PLATELET COUNT 174 10^3/uL (134-434); RBC 3.63 M/mm3 (3.60-5.2); RDW 14.6 % (11.6-15.6); WHITE BLOOD COUNT 8.5 K/mm3 (4.0-10.0)
[2023-02-21 10:43] VITALS: BP 116/76; PULSE 79; TEMP 98.9
[2023-02-21] MEDS: ENOXAPARIN NA (PORCINE) 40 MG/0.4 ML DISP.SYRIN SQ SCH (11:04)
== END 2023-02-21 13:20 | disposition home or self-care (01) | DRG 785 ==
LOC: JLDR 06:25 → J3W 13:10
PROVIDERS: ADMIT Obstetrics & Gynecology; ATTEND Obstetrics & Gynecology
PROC: 10D00Z1 Extraction of Products of Conception, Low, Open Approach (ICD-10-PCS; principal; 2023-02-18)
PROC: 0UT70ZZ Resection of Bilateral Fallopian Tubes, Open Approach (ICD-10-PCS; 2023-02-18)
DX: O34.211 Maternal care for low transverse scar from previous cesarean delivery (principal); O24.420 Gestational diabetes mellitus in childbirth, diet controlled; Z30.2 Encounter for sterilization; Z3A.39 39 weeks gestation of pregnancy; Z37.0 Single live birth
CPT/HCPCS: 36415; 36600; 80053; 82803; 85025; 85384

== ENCOUNTER 2023-05-22 17:18 | Inpatient (IN) | payer BC ==
[2023-05-22] MEDS ORDERED: ONDANSETRON 4 MG/2 ML VIAL ONE ×2 (18:56→19:05)
[2023-05-22] MEDS ORDERED: PIPERACILLIN/TAZOB 4.5 GM 4.5 GM/100 ML BAG IVPB ONE (18:56)
[2023-05-22] MEDS ORDERED: morphine SULFATE 4 MG/ML VIAL ONE ×2 (18:56→19:05)
[2023-05-22] MEDS: SODIUM CHLORIDE IV ONE (19:20)
[2023-05-22] MEDS: morphine CARPU-JECT 4 MG/1 ML DISP.SYRIN IVPUSH ONE (19:20)
[2023-05-22] MEDS: ONDANSETRON 4 MG/2 ML VIAL IVPUSH ONE (19:21)
[2023-05-22] MEDS: PIPERACILLIN/TAZOB 4.5 GM 4.5 GM in DEXTROSE 5%-WATER 100 ML IVPB ONE (19:21)
[2023-05-22 19:25] LABS: VENOUS BASE EXCESS 0.7 mmol/L (-2-2); VENOUS O2 SATURATION 61.3 % (70-80); VENOUS PCO2 30.9 mmHg (38-52); VENOUS PH 7.492 (7.310-7.410)
[2023-05-22 19:28] LABS: BASO % 0.1 % (0-2.0); HEMATOCRIT 38.3 % (32.4-45.2); HEMOGLOBIN 13.3 GM/dL (10.7-15.3); MCH 33.6 pg (25.7-33.7); MCHC 34.6 g/dl (32.0-36.0); MEAN CELL VOLUME 97.1 fl (80-96); MEAN PLT VOLUME 9.2 fl (7.5-11.1); NEUT % 87.9 % (42.8-82.8); PLATELET COUNT 217 10^3/uL (134-434); RBC 3.95 M/mm3 (3.60-5.2); RDW 13.2 % (11.6-15.6); WHITE BLOOD COUNT 11.9 K/mm3 (4.0-10.0)
[2023-05-22 19:36] LABS: INR 1.1 (0.83-1.09); PROTHROMBIN TIME (PATIENT) 12.7 SEC (9.7-13.0)
[2023-05-22 19:39] LABS: ACTIVATED PTT 26.6 SECONDS (25.2-36.5)
[2023-05-22 19:45] LABS: POTASSIUM 3.9 mmol/L (3.5-5.1)
[2023-05-22 19:47] LABS: CALCIUM 9.4 mg/dL (8.5-10.1)
[2023-05-22 19:48] LABS: ALBUMIN 4.3 g/dl (3.4-5.0); BLOOD UREA NITROGEN 14.2 mg/dL (7-18); MAGNESIUM 1.8 mg/dL (1.8-2.4)
[2023-05-22 19:51] LABS: CREATININE 0.8 mg/dL (0.55-1.3)
[2023-05-22 19:52] LABS: BILIRUBIN,TOTAL 1.4 mg/dL (0.2-1)
[2023-05-22 19:53] LABS: TOT PROT 7.9 g/dl (6.4-8.2)
[2023-05-22] MEDS ORDERED: ACETAMINOPHEN INJECTION 100 ML IVPB ONE (20:35)
[2023-05-22 21:06] LABS: EPI CELLS >36 /uL (0-25.1); HYALINE CASTS 2 /uL (0-3.1); URINE APPEARANCE CLEAR; URINE BILIRUBIN NEGATIVE (NEGATIVE); URINE COLOR YELLOW; URINE GLUCOSE (UA) 2+ (NEGATIVE); URINE KETONE 4+ (NEGATIVE); URINE LEUK ESTERASE TRACE (NEGATIVE); URINE NITRITE POSITIVE (NEGATIVE); URINE PROTEIN 1+ (NEGATIVE); URINE UROBILINOGEN 0.2 mg/dL (0.2-1.0); URINE WBC 75 /uL (0-25.8)
[2023-05-22] MEDS: ACETAMINOPHEN 1000 MG/100 ML BAG IVPB ONE (21:28)
[2023-05-22 21:29] LABS: URINE BACTERIA 949.5 /uL (0-1359); URINE RBC 18.3 /uL (0-23.9)
[2023-05-22] MEDS ORDERED: KETOROLAC TROMETHAMINE 15 MG/ML VIAL ONE (22:17)
[2023-05-22] MEDS: KETOROLAC TROMETHAMINE 15 MG/ML VIAL IVPUSH ONE (22:25)
[2023-05-22] MEDS ORDERED: FENTANYL CITRATE/PF 50 MCG/ML VIAL ONE (23:24)
[2023-05-22] MEDS: LACTATED RINGERS SOLUTION 1,000 ML/1,000 ML INFUS.BAG IV SCH (23:31)
[2023-05-23] MEDS ORDERED: PIPERACILLIN/TAZOB 4.5 GM 4.5 GM in DEXTROSE 5%-WATER 100 ML IVPB SCH (03:00)
[2023-05-23 04:08] VITALS: BMI 23.6
[2023-05-23] MEDS: ACETAMINOPHEN 1000 MG/100 ML BAG IVPB PRN (05:26)
[2023-05-23] MEDS: PIPERACILLIN/TAZOB 4.5 GM 4.5 GM in DEXTROSE 5%-WATER 100 ML IVPB SCH ×2 (05:27→12:53)
[2023-05-23 09:34] LABS: BASO % 0.1 % (0-2.0); EOS % 0.1 % (0-4.5); HEMATOCRIT 33.4 % (32.4-45.2); HEMOGLOBIN 11.8 GM/dL (10.7-15.3); LYMPH % 12.9 % (8-40); MCH 34.5 pg (25.7-33.7); MCHC 35.3 g/dl (32.0-36.0); MEAN CELL VOLUME 97.6 fl (80-96); MONO % 5.5 % (3.8-10.2); NEUT % 81.4 % (42.8-82.8); PLATELET COUNT 160 10^3/uL (134-434); RBC 3.42 M/mm3 (3.60-5.2); RDW 12.8 % (11.6-15.6); WHITE BLOOD COUNT 7.6 K/mm3 (4.0-10.0)
[2023-05-23 10:05] LABS: POTASSIUM 3.6 mmol/L (3.5-5.1)
[2023-05-23 10:14] LABS: BLOOD UREA NITROGEN 7.7 mg/dL (7-18)
[2023-05-23 10:17] LABS: CREATININE 0.6 mg/dL (0.55-1.3)
[2023-05-23] MEDS ORDERED: MIDAZOLAM HCL 2 MG/2 ML SINGLE DOSE VIAL ONE (10:23)
[2023-05-23 10:25] LABS: CALCIUM 7.9 mg/dL (8.5-10.1)
[2023-05-23] MEDS: BUPIVACAINE HCL/PF 0.25% (2.5MG/ML) 10 ML VIAL IJ ONE ×2 (10:55)
[2023-05-23] MEDS ORDERED: ROCURONIUM BROMIDE 50 MG/5 ML SYRINGE ONE (11:19)
[2023-05-23] MEDS ORDERED: NEOSTIGMINE METHYLSULFATE 0.5 MG/1 ML - 10 ML MDV ONE (11:23)
[2023-05-23] MEDS ORDERED: PROPOFOL 20 ML ONE (11:28)
[2023-05-23] MEDS: ACETAMINOPHEN 1000 MG/100 ML BAG IVPB SCH (12:05)
[2023-05-23] MEDS ORDERED: ONDANSETRON 4 MG/2 ML VIAL IVPUSH PRN (12:16)
[2023-05-23] MEDS ORDERED: ACETAMINOPHEN INJECTION 100 ML IVPB ONE (12:20)
[2023-05-23] MEDS ORDERED: ACETAMINOPHEN 1000 MG/100 ML BAG IVPB ONE (12:30)
[2023-05-23] MEDS ORDERED: oxyCODONE HCL 5 MG TABLET PO PRN ×2 (12:49)
[2023-05-23] MEDS: LACTATED RINGERS SOLUTION 1,000 ML IV SCH (13:29)
[2023-05-23 13:41] VITALS: BP 100/61; PULSE 85; RESP 18; TEMP 99
[2023-05-23] MEDS: DOCUSATE SODIUM 100 MG CAPSULE (FP) PO SCH (14:17)
[2023-05-23] MEDS ORDERED: KETOROLAC TROMETHAMINE 15 MG/ML VIAL IVPUSH PRN (18:00)
== END 2023-05-23 16:41 | disposition home or self-care (01) | DRG 398 ==
LOC: JER 17:18 → JERBED 21:13 → J7W 05-23 02:47
PROVIDERS: ADMIT Internal Medicine; ATTEND Nurse Practitioner Family
PROC: 0DTJ4ZZ Resection of Appendix, Percutaneous Endoscopic Approach (ICD-10-PCS; principal; 2023-05-23 13:00)
DX: K35.80 Unspecified acute appendicitis (principal); N39.0 Urinary tract infection, site not specified; R55 Syncope and collapse
CPT/HCPCS: 0241U-QW; 36415; 71045-TC-FY; 74177-TC; 80048; 80053; 81003; 82803; 82962; 83605; 83735; 84484; 84703; 85025; 85610; 85730; 86850; 86900; 86901; 87040; 87086; 88304-TC; 93005; 93010; 94760; 99291; J0131; Q9967